=== PATIENT | male | born 1950 | race Caucasian/White ===

== ENCOUNTER 2016-05-20 07:16 | Day surgery (SDC) | payer OTHER, MEDICARE ==
[2016-05-18 11:18] LABS: HEMOGLOBIN 13.3 g/dL (13.5-17.0); HGB HCT DIFFERENCE 0.9; MEAN CORPUSCULAR HEMOGLOBIN 31.9 pg (27.0-33.4); MEAN CORPUSCULAR VOLUME 94 fl (80-97); RED BLOOD COUNT 4.15 10^6/uL (4.35-5.55); RED CELL DISTRIBUTION WIDTH 13.4 % (11.5-14.0); WHITE BLOOD COUNT 8.4 10^3/uL (4.0-10.5)
[2016-05-18 11:31] LABS: APPEARANCE,URINE CLEAR; BILIRUBIN,URINE NEGATIVE (NEGATIVE); GLUCOSE, URINE NEGATIVE (NEGATIVE); KETONES,URINE NEGATIVE (NEGATIVE); LEUKOCYTE ESTERASE,URINE NEGATIVE (NEGATIVE); NITRITE,URINE NEGATIVE (NEGATIVE); PROTEIN,URINE NEGATIVE (NEGATIVE); URINE SPECIFIC GRAVITY 1.011; UROBILINOGEN,URINE NEGATIVE mg/dL (<2.0)
[2016-05-18 11:38] LABS: C-REACTIVE PROTEIN < 5.0 mg/L (<10.0)
[2016-05-18 11:58] LABS: ERYTHROCYTE SEDIMENTATION RATE 17 mm/hr (0-20)
--- NOTE | 2016-05-18 14:04 | EKG REPORT ---
SEVERITY:- BORDERLINE ECG - SINUS RHYTHM BORDERLINE INFERIOR Q WAVES : Confirmed by: Bam Aguiar 18-May-2016 14:04:00
[2016-05-19 13:52] LABS: BLOOD UREA NITROGEN 20 mg/dL (7-20); CHLORIDE 103 mmol/L (98-107); CREATININE RESULT 0.63 mg/dL (0.52-1.25); GLUCOSE 47 mg/dL (75-110); POTASSIUM 4.5 mmol/L (3.6-5.0)
[2016-05-19 13:53] LABS: ANION GAP 12 (5-19); CARBON DIOXIDE 26 mmol/L (22-30); SODIUM 140.7 mmol/L (137-145)
[2016-05-19 13:54] LABS: CALCIUM 9.9 mg/dL (8.4-10.2)
[~2016-05-20 07:16] MED LIST: CEFAZOLIN 2 GM/D5W RTU 2 GM/50 ML RTUPB IV PRN; LACTATED RINGERS 1000 ML IV PRN; LIDOCAINE 0.5% INJ-PF (5 MG/ML) 50 ML SDV SUBCUT PRN
[2016-05-20] MEDS ORDERED: BUPIVACAINE HCL 0.5 % INJ/PF 30 ML SDV ONE (09:40)
[2016-05-20] MEDS ORDERED: DEXMEDETOMIDINE INJ 80 MCG/20 ML VIAL IV ONE ×2 (09:56→12:10)
[2016-05-20] MEDS ORDERED: FENTANYL CITRATE INJ/PF 250 MCG/5 ML AMPULE ONE ×2 (09:56→12:10)
[2016-05-20] MEDS ORDERED: PROPOFOL INJ 200 MG/20 ML VIAL IV ONE ×2 (09:56→12:10)
[2016-05-20] MEDS ORDERED: ACETAMINOPHEN 100 ML IV ONE ×2 (09:56→12:10)
[2016-05-20] MEDS ORDERED: MIDAZOLAM 2 MG/2 ML INJ ONE ×2 (09:56→12:10)
[2016-05-20] MEDS ORDERED: EPHEDRINE SULFATE INJ 50 MG/1 ML AMPULE ONE ×2 (09:56→12:10)
[2016-05-20] MEDS ORDERED: FENTANYL CITRATE INJ/PF 100 MCG/2 ML AMPUL ONE (09:57)
[2016-05-20] MEDS ORDERED: CEFAZOLIN INJ 1 GM VIAL ONE (10:12)
[2016-05-20] MEDS ORDERED: MEPERIDINE HCL/PF INJ 25 MG/1 ML DISP.SYRIN IV PRN (10:41)
[2016-05-20] MEDS ORDERED: PROMETHAZINE HCL INJ 25 MG/1 ML VIAL IV PRN ×2 (10:41)
[2016-05-20] MEDS ORDERED: FENTANYL CITRATE INJ/PF 100 MCG/2 ML AMPUL IV PRN ×3 (10:41)
[2016-05-20] MEDS ORDERED: DIPHENHYDRAMINE HCL 50 MG/ML VIAL IV PRN (10:41)
[2016-05-20] MEDS ORDERED: ONDANSETRON HCL INJ/PF 4 MG/2 ML SDV IV PRN ×2 (10:41→12:06)
[2016-05-20] MEDS ORDERED: MORPHINE SULFATE 10 MG/ML INJ IV PRN (10:41)
--- NOTE | 2016-05-20 11:50 | Operative Report ---
Operative Report DATE OF SURGERY: 05/20/16 PREOPERATIVE DIAGNOSIS: Posttraumatic arthrosis, right wrist OPERATION: Right radiocarpal arthrodesis. Proximal row carpectomy. Distal ulna resection SURGEON: MARIAM ZIMMERMAN ANESTHESIA: GA TISSUE REMOVED OR ALTERED: Specimen to pathology. Specimen to microbiology ESTIMATED BLOOD LOSS: 50 PROCEDURE: With the patient supine on the operating table the right upper extremity is prepped and draped in sterile fashion. The limb was elevated for exsanguination tourniquet inflated 250 torr. Total incisions being made beginning over the distal aspect of the third metacarpal extending proximally along the dorsal surface of the wrist onto the distal radius. Sharp dissection was used to carry the incision down to the fourth dorsal dorsal extensor compartment. This is opened and the tendons are retracted ulnarward. The third dorsal extensor compartment well is opened and Amanda's tubercle is resected. The dissection continues distally and the dorsal aspect of the third metacarpal carpal is exposed. At this point the case focuses on the radiocarpal joint. There is an anterior subluxation which is difficult to reduce. Attempt to do this multiple maneuvers. I resected the dorsal rim of the distal radius. I've attempted to mobilize the proximal carpal row by blunt dissection and also by levering it unsuccessfully. I subsequently performed a proximal row carpectomy which allows me enough laxity to translate the carpus back over the distal radius. This is stabilized using a posterior wrist arthrodesis plate by Jose. The plate is applied and the reduction assessed using intraoperative fluoroscopy and felt to be adequate. This results in a significant gap in the radiocarpal joint. The wound is irrigated. The tourniquet was deflated. Hemostasis obtained. The morcellized bone from the approach is then packed into the radiocarpal joint followed by 5 mL of DBX bone graft substitute. The wound is reapproximated using interrupted Vicryl followed by nylon. A sterile compressive dressing and posterior plaster splint were applied. The patient's returned to PACU in satisfactory condition.
[2016-05-20] MEDS ORDERED: OXYCODONE HCL IR 5 MG TABLET PO PRN (12:05)
[2016-05-20] MEDS: FENTANYL CITRATE INJ/PF 100 MCG/2 ML AMPUL ONE ×2 (12:10→12:15)
[2016-05-20] MEDS: HYDROMORPHONE HCL INJ/PF 2 MG/ML AMPULE ONE ×4 (12:32→13:02)
[2016-05-20] MEDS ORDERED: ROPIVACAINE HCL 0.5% INJ/PF (5 MG/1 ML) 30 ML SDV ONE (13:08)
[2016-05-20] MEDS ORDERED: LIDOCAINE 2% INJ-PF (20 MG/ML) 10 ML AMPUL ONE ×2 (13:08→13:23)
[2016-05-20] MEDS ORDERED: LIDOCAINE 2%/EPINEPHRINE INJ 20 ML VIAL ONE (13:10)
[2016-05-20] MEDS ORDERED: NALOXONE HCL INJ/PF 0.4 MG/1 ML SDV ONE (13:15)
[2016-05-20] MEDS ORDERED: ONDANSETRON HCL INJ/PF 4 MG/2 ML SDV ONE (13:23)
[2016-05-20] MEDS ORDERED: METOCLOPRAMIDE HCL INJ/PF 10 MG/2 ML SDV ONE (13:23)
[2016-05-20] MEDS ORDERED: SUCCINYLCHOLINE CHLORIDE INJ 200 MG/10 ML VIAL ONE (13:23)
[2016-05-20] MEDS ORDERED: KETOROLAC TROMETHAMINE 60 MG/2 ML SDV ONE (13:23)
[2016-05-20 15:14] VITALS: BP 128/64
== END 2016-05-20 15:10 | disposition home or self-care (01) ==
LOC: OROUT 07:16
PROVIDERS: ATTEND Orthopaedic Surgery
PROC: 0RGN04Z Fusion of Right Wrist Joint with Internal Fixation Device, Open Approach (ICD-10-PCS; 2016-05-20)
PROC: 0RR Upper Joints, Replacement (ICD-10-PCS; 2016-05-20)
PROC: 0PBM0ZZ Excision of Right Carpal, Open Approach (ICD-10-PCS; principal; 2016-05-20 09:30)
DX: M19.131 Post-traumatic osteoarthritis, right wrist (principal); F17.210 Nicotine dependence, cigarettes, uncomplicated; J44.9 Chronic obstructive pulmonary disease, unspecified; E11.9 Type 2 diabetes mellitus without complications; Z79.899 Other long term (current) drug therapy; Z79.4 Long term (current) use of insulin
CPT/HCPCS: 93005; 36415; 87070; 87205; 82962; 85027; 85652; 87075; 86140; 80048; 80053; 81001; 83036; 71020; 73110; 93010; 25136; 25820; J2795; J2250; J0690 ×2; J3490 ×4; J1885; J3010 ×2; J2765; J2310; J1170; J0330; J2405; J2704; J0131; 01830

== ENCOUNTER → 2016-06-18 | Outpatient (CLI) | payer MEDICARE, OTHER | LOC: RAD 07:06 | PROVIDERS: ATTEND Orthopaedic Surgery | DX: Z01.818 Encounter for other preprocedural examination (principal); M25.551 Pain in right hip; E13.8 Other specified diabetes mellitus with unspecified complications ==

== ENCOUNTER → 2016-07-16 | Outpatient (CLI) | payer OTHER ==
[2016-07-16 10:53] LABS: ABSOLUTE BASOPHILS # (AUTO) 0.1 10^3/uL (0.0-0.2); ABSOLUTE EOSINOPHILS # (AUTO) 0.4 10^3/uL (0.0-0.6); ABSOLUTE LYMPHOCYTES (AUTO) 1.6 10^3/uL (0.5-4.7); ABSOLUTE MONOCYTES (AUTO) 0.6 10^3/uL (0.1-1.4); ABSOLUTE NEUT (AUTO) 4.5 10^3/uL (1.7-8.2); BASOPHILS % (AUTO) 0.7 % (0-2); EOSINOPHILS % (AUTO) 5.2 % (0-6); HEMATOCRIT 38.1 % (37.9-51.0); HEMOGLOBIN 12.4 g/dL (13.5-17.0); HGB HCT DIFFERENCE -0.9; MEAN CORPUSCULAR HEMOGLOBIN 31.9 pg (27.0-33.4); MEAN CORPUSCULAR HGB CONC 32.6 g/dL (32.0-36.0); MEAN CORPUSCULAR VOLUME 98 fl (80-97); MONOCYTES % (AUTO) 8.6 % (3-13); RED CELL DISTRIBUTION WIDTH 13.7 % (11.5-14.0); SEGMENTED NEUTROPHILS % (AUTO) 63.5 % (42-78); WHITE BLOOD COUNT 7.1 10^3/uL (4.0-10.5)
[2016-07-16 10:59] LABS: APPEARANCE,URINE CLEAR; BILIRUBIN,URINE NEGATIVE (NEGATIVE); GLUCOSE, URINE 150 mg/dL (NEGATIVE); KETONES,URINE NEGATIVE (NEGATIVE); LEUKOCYTE ESTERASE,URINE NEGATIVE (NEGATIVE); NITRITE,URINE NEGATIVE (NEGATIVE); PROTEIN,URINE NEGATIVE (NEGATIVE); URINE SPECIFIC GRAVITY 1.023; UROBILINOGEN,URINE NEGATIVE mg/dL (<2.0)
[2016-07-16 11:19] LABS: ANION GAP 10 (5-19); BLOOD UREA NITROGEN 23 mg/dL (7-20); CALCIUM 9.8 mg/dL (8.4-10.2); CARBON DIOXIDE 27 mmol/L (22-30); CHLORIDE 100 mmol/L (98-107); CREATININE RESULT 0.82 mg/dL (0.52-1.25); GLUCOSE 229 mg/dL (75-110); POTASSIUM 4.4 mmol/L (3.6-5.0); SODIUM 137.4 mmol/L (137-145)
--- NOTE | 2016-07-16 13:56 | EKG REPORT ---
SEVERITY:- NORMAL ECG - SINUS RHYTHM : Confirmed by: Bam Aguiar 16-Jul-2016 13:55:40
== END ==
LOC: OD 09:42
PROVIDERS: ATTEND Orthopaedic Surgery
DX: Z01.818 Encounter for other preprocedural examination (principal); Z01.810 Encounter for preprocedural cardiovascular examination; Z01.811 Encounter for preprocedural respiratory examination; E11.9 Type 2 diabetes mellitus without complications; R70.0 Elevated erythrocyte sedimentation rate; R79.82 Elevated C-reactive protein (CRP); Z79.899 Other long term (current) drug therapy
CPT/HCPCS: 36415; 71020; 80048; 81001; 83036; 85025; 93005; 93010

== ENCOUNTER → 2016-08-06 | Outpatient (CLI) | payer OTHER ==
[~2016-08-06] MED LIST changes: +BUPIVACAINE INJ/PF LIPOSOME/PF 266 MG/20 ML SDV IJ PRN; -CEFAZOLIN 2 GM/D5W RTU 2 GM/50 ML RTUPB IV PRN; +CEFAZOLIN INJ 1 GM VIAL IV PRN; +IBUPROFEN 800 MG/NS 250 ML IV PRN; -LACTATED RINGERS 1000 ML IV PRN; +LANSOPRAZOLE 15 MG TAB.RAP.DR PO PRN; +OXYCODONE HCL SR 10 MG TABLET PO PRN; +RINGERS SOLUTION,LACTATED 1,000 ML IV PRN; +SCOPOLAMINE HYDROBROMIDE 1.5 MG PATCH.TD72 TOP PRN; +VANCOMYCIN HCL 1,000 MG in DEXTROSE 5%-WATER 250 ML IV PRN
[2016-08-06 12:25] LABS: HEMATOCRIT 37.3 % (37.9-51.0); HEMOGLOBIN 12.4 g/dL (13.5-17.0); HGB HCT DIFFERENCE -0.1; MEAN CORPUSCULAR HEMOGLOBIN 31.7 pg (27.0-33.4); MEAN CORPUSCULAR HGB CONC 33.4 g/dL (32.0-36.0); MEAN CORPUSCULAR VOLUME 95 fl (80-97); RED BLOOD COUNT 3.92 10^6/uL (4.35-5.55); RED CELL DISTRIBUTION WIDTH 13.1 % (11.5-14.0); WHITE BLOOD COUNT 11.7 10^3/uL (4.0-10.5)
[2016-08-06 12:29] LABS: APPEARANCE,URINE SLIGHTLY-CLOUDY; BILIRUBIN,URINE NEGATIVE (NEGATIVE); GLUCOSE, URINE >=500 mg/dL (NEGATIVE); KETONES,URINE NEGATIVE (NEGATIVE); LEUKOCYTE ESTERASE,URINE NEGATIVE (NEGATIVE); NITRITE,URINE NEGATIVE (NEGATIVE); PROTEIN,URINE NEGATIVE (NEGATIVE); URINE SPECIFIC GRAVITY 1.028; UROBILINOGEN,URINE NEGATIVE mg/dL (<2.0)
[2016-08-06 12:52] LABS: ANION GAP 9 (5-19); BLOOD UREA NITROGEN 25 mg/dL (7-20); CALCIUM 9.9 mg/dL (8.4-10.2); CARBON DIOXIDE 29 mmol/L (22-30); CHLORIDE 100 mmol/L (98-107); CREATININE RESULT 0.79 mg/dL (0.52-1.25); GLUCOSE 160 mg/dL (75-110); POTASSIUM 4.7 mmol/L (3.6-5.0); SODIUM 138.2 mmol/L (137-145)
[2016-08-14 16:12] VITALS: BP 136/80
== END ==
LOC: OD 11:35 → EDSTATUS 08-17 10:00
PROVIDERS: ATTEND Orthopaedic Surgery
DX: Z01.810 Encounter for preprocedural cardiovascular examination (principal); Z01.812 Encounter for preprocedural laboratory examination; Z01.818 Encounter for other preprocedural examination; M16.11 Unilateral primary osteoarthritis, right hip
CPT/HCPCS: 36415; 80048; 81001; 85027; J1741; J3370; J7050; J7060

== ENCOUNTER 2016-09-21 07:10 | Inpatient (IN) | payer OTHER, MEDICARE ==
--- NOTE | 2016-09-15 09:26 | RADIOLOGY REPORT (SQ) ---
EXAM DESCRIPTION: CHEST PA/LATERAL COMPLETED DATE/TIME: 09/15/2016 9:03 am REASON FOR STUDY: PRE-OP COMPARISON: 07/16/2016. EXAM PARAMETERS: NUMBER OF VIEWS: two views TECHNIQUE: Digital Frontal and Lateral radiographic views of the chest acquired. RADIATION DOSE: NA LIMITATIONS: none FINDINGS: LUNGS AND PLEURA: No opacities, masses or pneumothorax. No pleural effusion. MEDIASTINUM AND HILAR STRUCTURES: No masses or contour abnormalities. HEART AND VASCULAR STRUCTURES: Heart normal size. No evidence for failure. BONES: No acute findings. Degenerative changes in the spine. HARDWARE: None in the chest. OTHER: No other significant finding. IMPRESSION: NO SIGNIFICANT RADIOGRAPHIC FINDING IN THE CHEST. TECHNICAL DOCUMENTATION: JOB ID: [id number] [employer]- All Rights Reserved
[2016-09-15 10:21] LABS: HEMATOCRIT 39.3 % (37.9-51.0); HEMOGLOBIN 12.9 g/dL (13.5-17.0); HGB HCT DIFFERENCE -0.6; MEAN CORPUSCULAR HEMOGLOBIN 31.6 pg (27.0-33.4); MEAN CORPUSCULAR HGB CONC 32.9 g/dL (32.0-36.0); MEAN CORPUSCULAR VOLUME 96 fl (80-97); RED CELL DISTRIBUTION WIDTH 13.4 % (11.5-14.0); WHITE BLOOD COUNT 7.1 10^3/uL (4.0-10.5)
[2016-09-15 10:33] LABS: APPEARANCE,URINE CLEAR; BILIRUBIN,URINE NEGATIVE (NEGATIVE); GLUCOSE, URINE >=500 mg/dL (NEGATIVE); KETONES,URINE NEGATIVE (NEGATIVE); LEUKOCYTE ESTERASE,URINE TRACE (NEGATIVE); NITRITE,URINE NEGATIVE (NEGATIVE); PROTEIN,URINE NEGATIVE (NEGATIVE); URINE SPECIFIC GRAVITY 1.021; UROBILINOGEN,URINE NEGATIVE mg/dL (<2.0)
[2016-09-15 10:43] LABS: ANION GAP 10 (5-19); BLOOD UREA NITROGEN 22 mg/dL (7-20); CALCIUM 9.7 mg/dL (8.4-10.2); CARBON DIOXIDE 27 mmol/L (22-30); CHLORIDE 102 mmol/L (98-107); CREATININE RESULT 0.77 mg/dL (0.52-1.25); GLUCOSE 244 mg/dL (75-110); POTASSIUM 4.9 mmol/L (3.6-5.0); SODIUM 138.6 mmol/L (137-145)
--- NOTE | 2016-09-15 19:21 | EKG REPORT ---
SEVERITY:- BORDERLINE ECG - SINUS RHYTHM BORDERLINE PROLONGED QT INTERVAL : Confirmed by: Ramón Larsen MD 15-Sep-2016 19:20:45
[~2016-09-21 07:10] MED LIST changes: +LACTATED RINGERS 1000 ML IV PRN; -RINGERS SOLUTION,LACTATED 1,000 ML IV PRN; -SCOPOLAMINE HYDROBROMIDE 1.5 MG PATCH.TD72 TOP PRN
[2016-09-21] MEDS ORDERED: THROMBIN (BOVINE) TOPICAL 20000 UNIT VIAL ONE (09:14)
[2016-09-21] MEDS ORDERED: BUPIVACAINE INJ/PF LIPOSOME/PF 266 MG/20 ML SDV ONE (09:14)
[2016-09-21] MEDS ORDERED: THROMBIN (BOVINE) 5000 UNIT EPITAXIS KIT ONE (09:14)
[2016-09-21] MEDS ORDERED: MIDAZOLAM 2 MG/2 ML INJ ONE (09:18)
[2016-09-21] MEDS ORDERED: MORPHINE SULFATE 10 MG/ML INJ ONE (09:19)
[2016-09-21] MEDS ORDERED: TRANEXAMIC ACID INJ/PF 1,000 MG/10 ML SDV IV ONE ×3 (09:19→14:06)
[2016-09-21] MEDS ORDERED: PROPOFOL INJ 200 MG/20 ML VIAL IV ONE (09:19)
[2016-09-21] MEDS ORDERED: PROMETHAZINE HCL INJ 25 MG/1 ML VIAL IV PRN (11:35)
[2016-09-21] MEDS ORDERED: FENTANYL CITRATE INJ/PF 100 MCG/2 ML AMPUL IV PRN ×3 (11:35)
[2016-09-21] MEDS ORDERED: ONDANSETRON HCL INJ/PF 4 MG/2 ML SDV IV PRN (11:35)
[2016-09-21] MEDS ORDERED: MORPHINE SULFATE 10 MG/ML INJ IV PRN ×3 (11:35→13:01)
[2016-09-21] MEDS ORDERED: DIPHENHYDRAMINE HCL 50 MG/ML VIAL IV PRN ×2 (11:35→13:01)
[2016-09-21] MEDS ORDERED: MEPERIDINE HCL/PF INJ 25 MG/1 ML DISP.SYRIN IV PRN (11:35)
[2016-09-21] MEDS ORDERED: ONDANSETRON 4 MG TAB.RAPDIS PO PRN (13:01)
[2016-09-21] MEDS ORDERED: ACETAMINOPHEN 325 MG TABLET PO PRN (13:01)
[2016-09-21] MEDS ORDERED: MAG HYDROX/AL HYDROX/SIMETH SUSP 30 ML UDCUP PO PRN (13:01)
[2016-09-21] MEDS ORDERED: MORPHINE SULFATE 10 MG/ML INJ IM PRN (13:01)
[2016-09-21] MEDS ORDERED: INSULIN PUMP CARTRIDGE SQ PRN (13:01)
[2016-09-21] MEDS ORDERED: ZOLPIDEM TARTRATE 5 MG TABLET PO PRN (13:01)
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
[2016-09-21] MEDS ORDERED: (PENDING PHARMACY ID) (Pramipexole Di-Hcl [Pramipexole Dihydrochloride] 1 MG) PO SCH (14:00)
--- NOTE | 2016-09-21 14:33 | RADIOLOGY REPORT (SQ) ---
EXAM DESCRIPTION: PELVIS AP COMPLETED DATE/TIME: 09/21/2016 1:45 pm REASON FOR STUDY: Post Op Long Cassette in PACU M16.11 UNILATERAL PRIMARY OSTEOARTHRITIS, RIGHT HI P COMPARISON: CT of the right hip 06/18/2016 NUMBER OF VIEWS: AP pelvis, AP hip long cassette, portable technique TECHNIQUE: Digital radiographic images of the right hip post-procedure. LIMITATIONS: None. FINDINGS: New right hip replacement with acetabular component anchored with a screw. Femoral compon ent in good orientation. Old right pelvic fracture with stabilization hardware unchanged from CT 06/18/2016. Cheng catheter in the bladder. IMPRESSION: SATISFACTORY POSTOPERATIVE RIGHT HIP. TECHNICAL DOCUMENTATION: JOB ID: [id number] [employer]- All Rights Reserved
[2016-09-21] MEDS: GABAPENTIN 400 MG CAPSULE PO SCH ×2 (15:30→21:41)
[2016-09-21] MEDS: IBUPROFEN 800 MG in NORMAL SALINE 250 ML IV SCH (17:00)
[2016-09-21] MEDS: OXYBUTYNIN CHLORIDE 5 MG TABLET PO SCH (17:01)
[2016-09-21] MEDS: SENNOSIDES/DOCUSATE 8.6-50 MG 1 EACH TABLET PO SCH (17:01)
[2016-09-21] MEDS: RINGERS SOLUTION,LACTATED 1,000 ML IV PRN (17:02)
[2016-09-21] MEDS: OXYCODONE HCL IR 5 MG TABLET PO PRN ×2 (17:37→23:26)
[2016-09-21] MEDS: MORPHINE SULFATE 10 MG/ML INJ IV PRN ×3 (18:34→23:07)
[2016-09-21] MEDS: ONDANSETRON HCL INJ/PF 4 MG/2 ML SDV IV PRN (18:34)
[2016-09-21] MEDS: ATORVASTATIN CALCIUM 80 MG TABLET PO SCH (21:38)
[2016-09-21] MEDS: PRAMIPEXOLE DI-HCL 0.5 MG TABLET PO SCH (21:38)
[2016-09-21] MEDS: OXYCODONE HCL SR 10 MG TABLET PO SCH (21:39)
[2016-09-21] MEDS: RIVAROXABAN 10 MG TABLET PO SCH (21:39)
[2016-09-21] MEDS ORDERED: DEXTROSE 40% GEL 15 GM TUBE ONE (23:43)
[2016-09-21] MEDS ORDERED: DEXTROSE 50%-WATER SYRINGE 25 GM/50 ML DOSE IV PRN (23:58)
[2016-09-21] MEDS ORDERED: DEXTROSE 40% GEL 15 GM TUBE PO PRN (23:58)
[2016-09-21] MEDS ORDERED: DEXTROSE 50%-WATER SYRINGE 12.5 GM/25 ML DOSE IV PRN (23:58)
[2016-09-21] MEDS ORDERED: GLUCAGON,HUMAN RECOMB 1 MG INJ IM PRN (23:58)
[2016-09-21] MEDS ORDERED: DEXTROSE 40% GEL 15 GM TUBE X 2 PO PRN (23:58)
[2016-09-22] MEDS ORDERED: VANCOMYCIN HCL 1,000 MG in DEXTROSE 5%-WATER 250 ML IV ONE (01:00)
[2016-09-22] MEDS: IBUPROFEN 800 MG in NORMAL SALINE 250 ML IV SCH ×3 (01:55→17:47)
[2016-09-22] MEDS: ONDANSETRON HCL INJ/PF 4 MG/2 ML SDV IV PRN (03:15)
[2016-09-22] MEDS: RINGERS SOLUTION,LACTATED 1,000 ML IV PRN ×2 (03:15→15:02)
[2016-09-22] MEDS: MORPHINE SULFATE 10 MG/ML INJ IV PRN (03:15)
[2016-09-22] MEDS: PRAMIPEXOLE DI-HCL 0.5 MG TABLET PO SCH ×3 (05:36→21:30)
[2016-09-22] MEDS: GABAPENTIN 400 MG CAPSULE PO SCH ×3 (05:36→21:30)
[2016-09-22] MEDS: OXYCODONE HCL IR 5 MG TABLET PO PRN (05:36)
[2016-09-22] MEDS: LANSOPRAZOLE 30 MG TAB.RAP.DR PO SCH (05:36)
[2016-09-22 07:06] LABS: HEMATOCRIT 28.8 % (37.9-51.0); HEMOGLOBIN 9.4 g/dL (13.5-17.0); HGB HCT DIFFERENCE -0.6; MEAN CORPUSCULAR HEMOGLOBIN 31.7 pg (27.0-33.4); MEAN CORPUSCULAR HGB CONC 32.8 g/dL (32.0-36.0); MEAN CORPUSCULAR VOLUME 97 fl (80-97); RED BLOOD COUNT 2.98 10^6/uL (4.35-5.55); RED CELL DISTRIBUTION WIDTH 13.4 % (11.5-14.0); WHITE BLOOD COUNT 7.2 10^3/uL (4.0-10.5)
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
[2016-09-22 07:32] LABS: ANION GAP 6 (5-19); BLOOD UREA NITROGEN 24 mg/dL (7-20); CALCIUM 8.5 mg/dL (8.4-10.2); CARBON DIOXIDE 26 mmol/L (22-30); CHLORIDE 104 mmol/L (98-107); CREATININE RESULT 0.93 mg/dL (0.52-1.25); GLUCOSE 141 mg/dL (75-110); POTASSIUM 4.6 mmol/L (3.6-5.0); SODIUM 136.1 mmol/L (137-145)
[2016-09-22] MEDS: SENNOSIDES/DOCUSATE 8.6-50 MG 1 EACH TABLET PO SCH ×2 (09:37→17:47)
[2016-09-22] MEDS: PRENATAL VITAMIN W-O CA NO5/FE FUMARATE/FA CAPSULE PO SCH (09:38)
[2016-09-22] MEDS: OXYCODONE HCL SR 10 MG TABLET PO SCH ×2 (09:38→21:30)
[2016-09-22] MEDS: OXYBUTYNIN CHLORIDE 5 MG TABLET PO SCH (17:47)
[2016-09-22] MEDS: RIVAROXABAN 10 MG TABLET PO SCH (21:30)
[2016-09-22] MEDS: ATORVASTATIN CALCIUM 80 MG TABLET PO SCH (21:30)
[2016-09-23] MEDS: IBUPROFEN 800 MG in NORMAL SALINE 250 ML IV SCH ×2 (02:21→09:22)
[2016-09-23] MEDS: LANSOPRAZOLE 30 MG TAB.RAP.DR PO SCH (05:50)
[2016-09-23] MEDS: PRAMIPEXOLE DI-HCL 0.5 MG TABLET PO SCH (05:51)
[2016-09-23] MEDS: GABAPENTIN 400 MG CAPSULE PO SCH (05:51)
[2016-09-23 06:32] LABS: HEMATOCRIT 27.9 % (37.9-51.0); HEMOGLOBIN 9.3 g/dL (13.5-17.0); MEAN CORPUSCULAR HEMOGLOBIN 31.9 pg (27.0-33.4); MEAN CORPUSCULAR HGB CONC 33.3 g/dL (32.0-36.0); MEAN CORPUSCULAR VOLUME 96 fl (80-97); RED BLOOD COUNT 2.92 10^6/uL (4.35-5.55); RED CELL DISTRIBUTION WIDTH 13.5 % (11.5-14.0); WHITE BLOOD COUNT 9.1 10^3/uL (4.0-10.5)
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
[2016-09-23 08:16] VITALS: BP 144/55
[2016-09-23] MEDS: OXYCODONE HCL SR 10 MG TABLET PO SCH (09:23)
[2016-09-23] MEDS: PRENATAL VITAMIN W-O CA NO5/FE FUMARATE/FA CAPSULE PO SCH (09:23)
[2016-09-23] MEDS: SENNOSIDES/DOCUSATE 8.6-50 MG 1 EACH TABLET PO SCH (09:27)
== END 2016-09-23 11:33 | disposition home health service (06) | DRG 470 ==
LOC: INOR 07:10 → 4S 14:17
PROVIDERS: ADMIT Orthopaedic Surgery; ATTEND Orthopaedic Surgery
PROC: 0SR901A Replacement of Right Hip Joint with Metal Synthetic Substitute, Uncemented, Open Approach (ICD-10-PCS; principal; 2016-09-21 10:00)
DX: M16.51 Unilateral post-traumatic osteoarthritis, right hip (principal); S32.46 Associated transverse-posterior fracture of acetabulum; E10.649 Type 1 diabetes mellitus with hypoglycemia without coma; E78.5 Hyperlipidemia, unspecified; E10.42 Type 1 diabetes mellitus with diabetic polyneuropathy; F32.9 Major depressive disorder, single episode, unspecified; F17.290 Nicotine dependence, other tobacco product, uncomplicated; Z96.41 Presence of insulin pump (external) (internal); Z79.4 Long term (current) use of insulin; V49.9XXS Car occupant (driver) (passenger) injured in unspecified traffic accident, sequela
CPT/HCPCS: 01214; 36415; 71020; 72170; 80048; 81001; 82962; 85027; 86850; 86900; 86901; 87070; 87075; 87205; 88304; 88311; 93005; 93010; 94799; C1713; C9290; G8978-GP; G8979-GP; J0690; J1741; J2250; J2270; J2405; J2704; J3370; J3490; J7050; J7060; J7120

== ENCOUNTER 2018-05-12 05:17 | Inpatient (IN) | payer OTHER, MEDICARE ==
[2018-05-12 06:19] LABS: ABSOLUTE EOSINOPHILS # (AUTO) 0.3 10^3/uL (0.0-0.6); ABSOLUTE LYMPHOCYTES (AUTO) 1.4 10^3/uL (0.5-4.7); ABSOLUTE MONOCYTES (AUTO) 0.7 10^3/uL (0.1-1.4); BASOPHILS % (AUTO) 0.7 % (0-2); EOSINOPHILS % (AUTO) 4.5 % (0-6); HEMOGLOBIN 9.3 g/dL (13.5-17.0); LYMPHOCYTES % (AUTO) 22.3 % (13-45); MEAN CORPUSCULAR HEMOGLOBIN 30.4 pg (27.0-33.4); MEAN CORPUSCULAR HGB CONC 34.4 g/dL (32.0-36.0); MEAN CORPUSCULAR VOLUME 89 fl (80-97); MONOCYTES % (AUTO) 10.9 % (3-13); PLATELET COUNT 406 10^3/uL (150-450); RED BLOOD COUNT 3.05 10^6/uL (4.35-5.55); RED CELL DISTRIBUTION WIDTH 14.9 % (11.5-14.0); SEGMENTED NEUTROPHILS % (AUTO) 61.6 % (42-78); TOTAL CELLS COUNTED % (AUTO) 100 %; WHITE BLOOD COUNT 6.4 10^3/uL (4.0-10.5)
[2018-05-12 06:21] LABS: INTERNATIONAL RATION (INR) 1.11; PROTHROMBIN TIME 14.9 SEC (11.4-15.4)
[2018-05-12 06:22] LABS: PARTIAL THROMBOPLASTIN TIME 35.2 SEC (23.5-35.8)
[2018-05-12 06:35] LABS: ANION GAP 8 (5-19); BLOOD UREA NITROGEN 19 mg/dL (7-20); C-REACTIVE PROTEIN 69.3 mg/L (<10.0); CALCIUM 9.4 mg/dL (8.4-10.2); CARBON DIOXIDE 28 mmol/L (22-30); CHLORIDE 103 mmol/L (98-107); GLUCOSE 85 mg/dL (75-110); POTASSIUM 4.6 mmol/L (3.6-5.0); SODIUM 139.4 mmol/L (137-145)
[2018-05-12] MEDS ORDERED: FENTANYL CITRATE INJ/PF 100 MCG/2 ML AMPUL ONE (07:17)
[2018-05-12] MEDS ORDERED: LIDOCAINE 2% INJ-PF (100 MG/5 ML) SYRINGE ONE (07:17)
[2018-05-12] MEDS ORDERED: MIDAZOLAM 2 MG/2 ML INJ ONE (07:17)
[2018-05-12] MEDS ORDERED: PROPOFOL INJ 200 MG/20 ML VIAL IV ONE (07:18)
[2018-05-12] MEDS ORDERED: ONDANSETRON HCL INJ/PF 4 MG/2 ML SDV ONE (07:18)
[2018-05-12] MEDS ORDERED: BACITRACIN INJ 50,000 UNIT VIAL ONE (07:19)
[2018-05-12] MEDS ORDERED: THROMBIN (BOVINE) TOPICAL 20000 UNIT VIAL ONE (07:19)
[2018-05-12] MEDS ORDERED: THROMBIN (BOVINE) 5000 UNIT EPITAXIS KIT ONE (07:19)
--- NOTE | 2018-05-12 07:28 | RADIOLOGY REPORT (SQ) ---
EXAM DESCRIPTION: X-ray single view chest. CLINICAL HISTORY: 67 years Male, preop COMPARISON: None. TECHNIQUE: Single portable view of the chest performed on 05/12/2018 at 5:47 AM FINDINGS: The lungs are well expanded and are clear. There is no evidence of a pneumothorax. The cardiac silhouette is normal in size and configuration. The mediastinal contours are normal. No acute osseous abnormality is identified. There are degenerative changes of the right shoulder and thoracic spine. No focal soft tissue abnormalities are seen. Lines and tubes: None. IMPRESSION: 1. No definite acute intrathoracic disease. 2. Degenerative changes of the thoracic spine and right shoulder.
[2018-05-12] MEDS ORDERED: FENTANYL CITRATE INJ/PF 100 MCG/2 ML AMPUL IV PRN ×3 (08:18)
[2018-05-12] MEDS ORDERED: OXYCODONE-ACETAMINOPHEN 5-325 MG TABLET PO PRN ×2 (08:18)
[2018-05-12] MEDS ORDERED: DIPHENHYDRAMINE HCL 50 MG/ML VIAL IV PRN ×2 (08:18→09:01)
[2018-05-12] MEDS ORDERED: PROMETHAZINE HCL INJ 25 MG/1 ML VIAL IV PRN ×2 (08:18)
[2018-05-12] MEDS ORDERED: MEPERIDINE HCL/PF INJ 25 MG/1 ML DISP.SYRIN IV PRN (08:18)
[2018-05-12] MEDS ORDERED: ONDANSETRON HCL INJ/PF 4 MG/2 ML SDV IV PRN ×2 (08:18→09:01)
[2018-05-12] MEDS ORDERED: BUPIVACAINE HCL 0.5%-EPI 1:200000 INJ/PF 30 ML VIAL ONE (08:41)
[2018-05-12] MEDS ORDERED: ACETAMINOPHEN 325 MG TABLET PO PRN (09:01)
[2018-05-12] MEDS ORDERED: MAG HYDROX/AL HYDROX/SIMETH SUSP 30 ML UDCUP PO PRN (09:01)
[2018-05-12] MEDS ORDERED: ZOLPIDEM TARTRATE 5 MG TABLET PO PRN (09:01)
[2018-05-12] MEDS ORDERED: MORPHINE SULFATE 10 MG/ML INJ IV PRN ×2 (09:01)
[2018-05-12] MEDS ORDERED: ONDANSETRON 4 MG TAB.RAPDIS PO PRN (09:01)
--- NOTE | 2018-05-12 09:07 | Operative Report ---
Operative Report DATE OF SURGERY: 05/12/18 PREOPERATIVE DIAGNOSIS: Right periprosthetic hip infection OPERATION: Revision right hip arthroplasty SURGEON: MARIAM ZIMMERMAN ANESTHESIA: Spinal TISSUE REMOVED OR ALTERED: Cultures x2 to microbiology. Implants to CSS ESTIMATED BLOOD LOSS: 150 PROCEDURE: Implants used: Liner:[MDM liner] Head: 28 mm chrome cobalt head +4 neck The patient is placed in a left lateral decubitus position on the operating table. The right lower extremity and hindquarter is prepped and draped in a sterile fashion. A curvilinear incision was made over the greater trochanter a posterior approach the hip was taken ellipsing out the existing draining sinus tract.. The femoral head is dislocated and disimpacted from the trunnion. Attention was next turned to the acetabulum. Soft tissues cleared off the acetabulum using electrocautery. The acetabulum the existing MDM acetabular liner was disimpacted. The wound is then irrigated with 3 L normal seventh and bacitracin and pulse lavage followed by 3 L normal saline. The synovial surface is debrided and sent to pathology.. Subsequently a new MDM liner is impacted into the acetabular shell. A new chrome cobalt head, polyethylene adapter are impacted into one another and then impacted onto the trunnion. The hip is reduced.. Wound is copiously irrigated with pulsed lavage. Sent closed in layers using interrupted PDS followed by lazarus. A sterile dressing is applied and the patient's returned to recovery room in satisfactory patient.
--- NOTE | 2018-05-12 09:44 | RADIOLOGY REPORT (SQ) ---
EXAM DESCRIPTION: PELVIS AP COMPLETED DATE/TIME: 05/12/2018 9:35 am REASON FOR STUDY: Post Op Long Cassette in PACU Z96.649 PRESENCE OF UNSPECIFIED ARTIFICIAL HIP KERRI NT COMPARISON: None. NUMBER OF VIEWS: One view TECHNIQUE: Digital radiographic images of the pelvis post-procedure LIMITATIONS: None. FINDINGS: BONES: No worrisome or unexpected findings post-procedure. DEVICE: Right total hip arthroplasty. SOFT TISSUES: No worrisome findings. Expected postoperative soft tissue changes. IMPRESSION: SATISFACTORY POSTOPERATIVE PELVIS. TECHNICAL DOCUMENTATION: JOB ID: [id number] [employer] All Rights Reserved Reading location - IP/workstation name: [email or web address]
[2018-05-12] MEDS ORDERED: DEXTROSE 50%-WATER SYRINGE 25 GM/50 ML DOSE IV PRN (10:30)
[2018-05-12] MEDS ORDERED: DEXTROSE 40% GEL 15 GM TUBE PO PRN (10:30)
[2018-05-12] MEDS ORDERED: DEXTROSE 50%-WATER SYRINGE 12.5 GM/25 ML DOSE IV PRN (10:30)
[2018-05-12] MEDS ORDERED: GLUCAGON,HUMAN RECOMB 1 MG INJ IM PRN (10:30)
[2018-05-12] MEDS ORDERED: DEXTROSE 40% GEL 15 GM TUBE X 2 PO PRN (10:30)
[2018-05-12] MEDS ORDERED: TRANEXAMIC ACID INJ/PF 1,000 MG/10 ML SDV IV SCH ×2 (11:00→12:15)
[2018-05-12] MEDS: RINGERS SOLUTION,LACTATED 1,000 ML IV PRN ×2 (11:46→18:41)
[2018-05-12] MEDS: MORPHINE SULFATE 10 MG/ML INJ IV PRN ×6 (11:58→23:12)
[2018-05-12] MEDS ORDERED: TRANEXAMIC ACID INJ/PF 1,000 MG/10 ML SDV IV PRN (12:31)
[2018-05-12] MEDS: INSULIN LISPRO 100 UNIT/ML 3 ML VIAL SUBCUT SCH ×3 (12:43→22:14)
[2018-05-12] MEDS: OXYCODONE HCL IR 5 MG TABLET PO PRN (12:45)
[2018-05-12] MEDS: CEFTRIAXONE 2 GM/D5W RTU 2 GM/50 ML RTUPB IV SCH (12:45)
--- NOTE | 2018-05-12 12:46 | EKG REPORT ---
SEVERITY:- NORMAL ECG - SINUS RHYTHM : Confirmed by: Beena Mcginnis MD 12-May-2018 12:45:19
[2018-05-12] MEDS: IBUPROFEN 800 MG in NORMAL SALINE 250 ML IV SCH ×2 (15:20→22:09)
[2018-05-12] MEDS: GABAPENTIN 400 MG CAPSULE PO SCH ×2 (15:21→22:13)
[2018-05-12] MEDS ORDERED: NORMAL SALINE 10 ML SDV (AFTER EACH USE) IV PRN (15:30)
--- NOTE | 2018-05-12 15:31 | RADIOLOGY REPORT (SQ) ---
EXAM DESCRIPTION: PICC INSERTION; U/S GUIDE FOR VASCULAR ACCESS; FLUORO/CV PLACEMENT COMPLETED DATE/TIME: 05/12/2018 3:18 pm REASON FOR STUDY: IV antibiotics; IV ABX Z96.649 PRESENCE OF UNSPECIFIED ARTIFICIAL HIP JOINT COMPARISON: None. FLUOROSCOPY TIME: 22 2 images saved to PACS. TECHNIQUE: Fluoroscopic and ultrasound guided PICC placement. LIMITATIONS: None. PROCEDURE: After written consent and assessment were obtained, the patient was brought into the fluo roscopy room and placed supine on the table. Ultrasound evaluation of potential access sites were per formed. After successfully identifying a patent left basilic vein, the left arm was prepped and drape d in a sterile fashion along with the ultrasound probe. The entry site was anesthetized with 1% lidoc jayjay. A 21 gauge 7 cm needle was advanced through the skin and into the basilic vein under live ultra sound guidance. An ultrasound image was saved to PACS confirming access site. A .018 guide wire was then inserted through the needle and into the venous system. The needle was then removed and an 11 b lade scalpel was used to make a 1cm skin incision. A 5 fr peel-away sheath was advanced over the wir e and into the venous system. A measurement was then made using the existing wire and live fluoroscop ic guidance. The wire was then removed and trimmed. The PICC was advanced through the peel-away sheat h and into the venous system. The peel-away sheath was removed and the catheter was adhered to the pa tients arm with a stat lock. The catheter was then aspirated and flushed and a sterile bandage was pl aced over the access site. A fluoroscopic spot image was saved to PACS confirming the catheter tip w ithin the superior vena cava. IMPRESSION: SUCCESSFUL PLACEMENT OF A 5 FR DUAL LUMEN 46 CM PICC IN THE LEFT BASILIC VEIN. COMMENT: Patient medication list reviewed: Yes- Quality ID# 130:Eligible professional attests to doc umenting in the medical record they obtained, updated, or reviewed the patient's current medications. . Quality ID 145: Final reports for procedures using fluoroscopy that document radiation exposure marie yosvany, or exposure time and number of fluorographic images (if radiation exposure indices are not avail able) Quality ID #76: The patient was prepped and draped using maximum sterile barrier technique including cap, mask, sterile gown, sterile gloves, a large sterile sheet, hand hygiene, and 2% Chlorhexidine fo r cutaneous antisepsis. When ultrasound is used, sterile ultrasound techniques are followed requiring sterile gel and sterile probes. TECHNICAL DOCUMENTATION: JOB ID: [id number] [employer]- All Rights Reserved rev-07/23 Reading location - IP/workstation name: [email or web address]
[2018-05-12 15:57] LABS: APPEARANCE,URINE CLEAR; BILIRUBIN,URINE NEGATIVE (NEGATIVE); COLOR,URINE STRAW; GLUCOSE, URINE 150 mg/dL (NEGATIVE); KETONES,URINE NEGATIVE (NEGATIVE); LEUKOCYTE ESTERASE,URINE NEGATIVE (NEGATIVE); NITRITE,URINE NEGATIVE (NEGATIVE); PROTEIN,URINE NEGATIVE (NEGATIVE); URINE SPECIFIC GRAVITY 1.011; UROBILINOGEN,URINE NEGATIVE mg/dL (<2.0)
[2018-05-12] MEDS: VANCOMYCIN HCL 1,000 MG in DEXTROSE 5%-WATER 250 ML IV SCH ×2 (16:06→23:00)
[2018-05-12] MEDS: RIFAMPIN 300 MG CAPSULE PO SCH (16:14)
[2018-05-12] MEDS: SENNOSIDES/DOCUSATE 8.6-50 MG 1 EACH TABLET PO SCH (17:53)
[2018-05-12] MEDS ORDERED: VANCOMYCIN HCL 1,000 MG in DEXTROSE 5%-WATER 250 ML IV SCH (22:00)
[2018-05-12] MEDS: OXYCODONE HCL SR 10 MG TABLET PO SCH (22:12)
[2018-05-12] MEDS: NORMAL SALINE 10 ML SDV (SCHEDULED) IV SCH (22:15)
[2018-05-13] MEDS: RINGERS SOLUTION,LACTATED 1,000 ML IV PRN ×2 (00:49→12:19)
[2018-05-13] MEDS: MORPHINE SULFATE 10 MG/ML INJ IV PRN ×2 (02:38→16:33)
[2018-05-13 05:44] LABS: HEMATOCRIT 21.8 % (37.9-51.0); MEAN CORPUSCULAR HEMOGLOBIN 30.2 pg (27.0-33.4); MEAN CORPUSCULAR HGB CONC 33.7 g/dL (32.0-36.0); MEAN CORPUSCULAR VOLUME 90 fl (80-97); PLATELET COUNT 325 10^3/uL (150-450); RED BLOOD COUNT 2.44 10^6/uL (4.35-5.55); RED CELL DISTRIBUTION WIDTH 14.9 % (11.5-14.0); WHITE BLOOD COUNT 6.8 10^3/uL (4.0-10.5)
[2018-05-13] MEDS: IBUPROFEN 800 MG in NORMAL SALINE 250 ML IV SCH ×3 (05:49→22:38)
[2018-05-13] MEDS: LANSOPRAZOLE 30 MG TAB.RAP.DR PO SCH (05:49)
[2018-05-13] MEDS: GABAPENTIN 400 MG CAPSULE PO SCH ×3 (05:49→22:37)
[2018-05-13 05:57] LABS: HEMOGLOBIN 7.4 g/dL (13.5-17.0)
[2018-05-13 06:20] LABS: ERYTHROCYTE SEDIMENTATION RATE 82 mm/hr (0-20)
[2018-05-13 06:29] LABS: ANION GAP 7 (5-19); BLOOD UREA NITROGEN 15 mg/dL (7-20); C-REACTIVE PROTEIN 82.4 mg/L (<10.0); CALCIUM 8.3 mg/dL (8.4-10.2); CARBON DIOXIDE 26 mmol/L (22-30); CHLORIDE 104 mmol/L (98-107); GLUCOSE 102 mg/dL (75-110); POTASSIUM 4.6 mmol/L (3.6-5.0); SODIUM 137.1 mmol/L (137-145)
[2018-05-13] MEDS: VANCOMYCIN HCL 1,000 MG in DEXTROSE 5%-WATER 250 ML IV SCH ×3 (06:36→22:38)
[2018-05-13] MEDS: RIFAMPIN 300 MG CAPSULE PO SCH ×2 (08:21→16:44)
[2018-05-13] MEDS: INSULIN LISPRO 100 UNIT/ML 3 ML VIAL SUBCUT SCH ×4 (08:29→22:39)
[2018-05-13] MEDS ORDERED: TRANEXAMIC ACID INJ/PF 1,000 MG/10 ML SDV IV ONE (10:30)
[2018-05-13] MEDS: PRENATAL VITAMIN W DHA CAPSULE PO SCH (11:19)
[2018-05-13] MEDS: FINASTERIDE 5 MG TABLET PO SCH (11:19)
[2018-05-13] MEDS: OXYCODONE HCL SR 10 MG TABLET PO SCH ×2 (11:19→22:37)
[2018-05-13] MEDS: SENNOSIDES/DOCUSATE 8.6-50 MG 1 EACH TABLET PO SCH ×2 (11:19→20:19)
[2018-05-13] MEDS: NORMAL SALINE 10 ML SDV (SCHEDULED) IV SCH ×2 (11:20→22:38)
[2018-05-13] MEDS ORDERED: CEFTRIAXONE RTU 2 GM/D5W 50 ML IV SCH (12:00)
[2018-05-13] MEDS: CEFTRIAXONE 2 GM/D5W RTU 2 GM/50 ML RTUPB IV SCH (12:19)
[2018-05-13] MEDS: OXYCODONE HCL IR 5 MG TABLET PO PRN (22:37)
[2018-05-13] MEDS: ATORVASTATIN CALCIUM 80 MG TABLET PO SCH (22:38)
[2018-05-14] MEDS: OXYCODONE HCL IR 5 MG TABLET PO PRN ×2 (06:27→21:51)
[2018-05-14] MEDS: GABAPENTIN 400 MG CAPSULE PO SCH ×3 (06:27→21:52)
[2018-05-14] MEDS: LANSOPRAZOLE 30 MG TAB.RAP.DR PO SCH (06:27)
[2018-05-14] MEDS: IBUPROFEN 800 MG in NORMAL SALINE 250 ML IV SCH (06:28)
[2018-05-14] MEDS: VANCOMYCIN HCL 1,000 MG in DEXTROSE 5%-WATER 250 ML IV SCH ×3 (06:28→21:50)
[2018-05-14 06:55] LABS: HEMATOCRIT 27.9 % (37.9-51.0); MEAN CORPUSCULAR HEMOGLOBIN 30.1 pg (27.0-33.4); MEAN CORPUSCULAR HGB CONC 33.8 g/dL (32.0-36.0); MEAN CORPUSCULAR VOLUME 89 fl (80-97); PLATELET COUNT 329 10^3/uL (150-450); RED BLOOD COUNT 3.14 10^6/uL (4.35-5.55); RED CELL DISTRIBUTION WIDTH 14.8 % (11.5-14.0); WHITE BLOOD COUNT 8.1 10^3/uL (4.0-10.5)
[2018-05-14 07:06] LABS: HEMOGLOBIN 9.5 g/dL (13.5-17.0)
--- NOTE | 2018-05-14 07:10 | PDOC PROGRESS REPORT ---
Subjective Progress Note for:: 05/14/18 Reason For Visit: RIGHT HIP INFECTION 67-year-old white male status post I&D right hip for periprosthetic infection. Patient reports feeling 100% better. Remains afebrile. Has really not been mobilized at this point. Culture are growing gram-positive cocci in clusters. Physical Exam Vital Signs: Temp Pulse Resp BP Pulse Ox 36.7 C 88 17 141/72 H 96 05/13/18 22:54 05/13/18 22:54 05/13/18 22:54 05/13/18 22:54 05/13/18 22:54 Intake & Output 05/13/18 05/14/18 05/15/18 06:59 06:59 07:59 Intake Total 84202 5353 250 Output Total 7850 3970 Balance 3463 1383 250 General appearance: PRESENT: no acute distress Head exam: PRESENT: normocephalic Respiratory exam: PRESENT: unlabored Cardiovascular exam: PRESENT: RRR Pulses: PRESENT: +1 pedal pulses bilateral Vascular exam: PRESENT: normal capillary refill GI/Abdominal exam: PRESENT: soft Rectal exam: PRESENT: deferred Extremities exam: PRESENT: other - Right hip dressing with some drainage. To be changed by nursing. Leg lengths are equal. Distal neurovascular examination is intact. Results Laboratory Results: 05/14/18 06:40 05/13/18 04:35 05/13/18 05/14/18 08:10 06:40 WBC 8.1 RBC 3.14 L Hgb 9.5 L D Hct 27.9 L MCV 89 MCH 30.1 MCHC 33.8 RDW 14.8 H Plt Count 329 Blood Type O POSITIVE Antibody Screen NEGATIVE Impressions: Chest X-Ray 05/12/18 00:00 IMPRESSION: 1. No definite acute intrathoracic disease. 2. Degenerative changes of the thoracic spine and right shoulder. Guidance Fluoroscopy 05/12/18 00:00 IMPRESSION: SUCCESSFUL PLACEMENT OF A 5 FR DUAL LUMEN 46 CM PICC IN THE LEFT BASILIC VEIN. Interventional Vascular Procedure 05/12/18 00:00 IMPRESSION: SUCCESSFUL PLACEMENT OF A 5 FR DUAL LUMEN 46 CM PICC IN THE LEFT BASILIC VEIN. PICC Line Insertion 05/12/18 00:00 IMPRESSION: SUCCESSFUL PLACEMENT OF A 5 FR DUAL LUMEN 46 CM PICC IN THE LEFT BASILIC VEIN. Pelvis X-Ray 05/12/18 09:02 IMPRESSION: SATISFACTORY POSTOPERATIVE PELVIS. Status: Imported from PACS Assessment & Plan - Diagnosis (1) Prosthetic hip infection Is this a current diagnosis for this admission?: Yes Plan: Patient with clinical improvement. Cultures growing gram-positive cocci in clusters. Patient remains on broad-spectrum antibiotics at the current time. This will be tailored once sensitivities of the presumed Staphylococcus are known. In the interim the patient be mobilized with physical therapy and weightbearing as tolerated basis. Anticipate the need for 6 weeks of IV antibiotic therapy. - Time Time Spent with patient: 15-24 minutes Anticipated discharge: Home with Homehealth Within: within 48 hours
[2018-05-14] MEDS: RIFAMPIN 300 MG CAPSULE PO SCH ×2 (08:47→17:06)
[2018-05-14] MEDS: INSULIN LISPRO 100 UNIT/ML 3 ML VIAL SUBCUT SCH ×4 (08:58→21:51)
[2018-05-14] MEDS: CEFTRIAXONE 2 GM/D5W RTU 2 GM/50 ML RTUPB IV SCH (11:19)
[2018-05-14] MEDS: FINASTERIDE 5 MG TABLET PO SCH (11:20)
[2018-05-14] MEDS: PRENATAL VITAMIN W DHA CAPSULE PO SCH (11:20)
[2018-05-14] MEDS: OXYCODONE HCL SR 10 MG TABLET PO SCH (11:20)
[2018-05-14] MEDS: NORMAL SALINE 10 ML SDV (SCHEDULED) IV SCH ×2 (11:21→21:51)
[2018-05-14] MEDS: SENNOSIDES/DOCUSATE 8.6-50 MG 1 EACH TABLET PO SCH ×2 (11:21→17:06)
[2018-05-14] MEDS: MORPHINE SULFATE 10 MG/ML INJ IV PRN (11:32)
[2018-05-14] MEDS: PRAMIPEXOLE DI-HCL 0.5 MG TABLET PO SCH ×2 (17:05→21:51)
[2018-05-14] MEDS: ATORVASTATIN CALCIUM 80 MG TABLET PO SCH (21:51)
[2018-05-15] MEDS: LANSOPRAZOLE 30 MG TAB.RAP.DR PO SCH (05:48)
[2018-05-15] MEDS: VANCOMYCIN HCL 1,000 MG in DEXTROSE 5%-WATER 250 ML IV SCH (05:48)
[2018-05-15] MEDS: GABAPENTIN 400 MG CAPSULE PO SCH ×3 (05:48→21:53)
[2018-05-15 06:17] LABS: HEMATOCRIT 28.6 % (37.9-51.0); HEMOGLOBIN 9.7 g/dL (13.5-17.0); MEAN CORPUSCULAR HEMOGLOBIN 30.2 pg (27.0-33.4); MEAN CORPUSCULAR HGB CONC 33.8 g/dL (32.0-36.0); MEAN CORPUSCULAR VOLUME 89 fl (80-97); PLATELET COUNT 374 10^3/uL (150-450); RED BLOOD COUNT 3.21 10^6/uL (4.35-5.55); RED CELL DISTRIBUTION WIDTH 14.7 % (11.5-14.0); WHITE BLOOD COUNT 8.1 10^3/uL (4.0-10.5)
[2018-05-15] MEDS: INSULIN LISPRO 100 UNIT/ML 3 ML VIAL SUBCUT SCH ×3 (08:41→17:06)
[2018-05-15] MEDS: RIFAMPIN 300 MG CAPSULE PO SCH ×2 (08:42→16:53)
[2018-05-15] MEDS: OXYCODONE HCL IR 5 MG TABLET PO PRN (09:23)
[2018-05-15] MEDS: PRENATAL VITAMIN W DHA CAPSULE PO SCH (10:54)
[2018-05-15] MEDS: SENNOSIDES/DOCUSATE 8.6-50 MG 1 EACH TABLET PO SCH ×2 (10:55→17:07)
[2018-05-15] MEDS: PRAMIPEXOLE DI-HCL 0.5 MG TABLET PO SCH ×3 (10:55→21:53)
[2018-05-15] MEDS: FINASTERIDE 5 MG TABLET PO SCH (10:55)
[2018-05-15] MEDS: LEVOFLOXACIN 750 MG/D5W RTU 750 MG/150 ML RTUPB IV SCH (10:56)
[2018-05-15] MEDS: NORMAL SALINE 10 ML SDV (SCHEDULED) IV SCH ×2 (10:56→21:54)
[2018-05-15] MEDS: CEFTRIAXONE 2 GM/D5W RTU 2 GM/50 ML RTUPB IV SCH (12:40)
[2018-05-15] MEDS: MAGNESIUM CITRATE 296 ML BOTTLE PO ONE (21:43)
[2018-05-15] MEDS: MORPHINE SULFATE 10 MG/ML INJ IV PRN (21:52)
[2018-05-15] MEDS: ATORVASTATIN CALCIUM 80 MG TABLET PO SCH (21:53)
[2018-05-16] MEDS: GABAPENTIN 400 MG CAPSULE PO SCH ×3 (05:08→22:22)
[2018-05-16] MEDS: LANSOPRAZOLE 30 MG TAB.RAP.DR PO SCH (05:08)
[2018-05-16] MEDS: OXYCODONE HCL IR 5 MG TABLET PO PRN (05:08)
[2018-05-16] MEDS: MAGNESIUM CITRATE 296 ML BOTTLE PO ONE (07:41)
[2018-05-16] MEDS: RIFAMPIN 300 MG CAPSULE PO SCH ×2 (07:41→15:42)
[2018-05-16] MEDS ORDERED: MAGNESIUM CITRATE 296 ML BOTTLE PO ONE (08:30)
[2018-05-16] MEDS: LEVOFLOXACIN 750 MG/D5W RTU 750 MG/150 ML RTUPB IV SCH (10:55)
[2018-05-16] MEDS: PRAMIPEXOLE DI-HCL 0.5 MG TABLET PO SCH ×3 (10:56→22:25)
[2018-05-16] MEDS: FINASTERIDE 5 MG TABLET PO SCH (10:56)
[2018-05-16] MEDS: NORMAL SALINE 10 ML SDV (SCHEDULED) IV SCH ×2 (10:57→22:23)
[2018-05-16] MEDS: SENNOSIDES/DOCUSATE 8.6-50 MG 1 EACH TABLET PO SCH ×2 (10:57→17:37)
[2018-05-16] MEDS: PRENATAL VITAMIN W DHA CAPSULE PO SCH (10:57)
[2018-05-16] MEDS: POLYETHYLENE GLYCOL 3350 POWDER 17 GM/1 PACKET PO SCH (18:07)
[2018-05-16] MEDS: ATORVASTATIN CALCIUM 80 MG TABLET PO SCH (22:22)
[2018-05-16] MEDS: OXYCODONE HCL SR 10 MG TABLET PO SCH (22:22)
[2018-05-17] MEDS: LANSOPRAZOLE 30 MG TAB.RAP.DR PO SCH (05:34)
[2018-05-17] MEDS: GABAPENTIN 400 MG CAPSULE PO SCH ×3 (05:34→21:43)
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
[2018-05-17] MEDS: OXYCODONE HCL IR 5 MG TABLET PO PRN (07:44)
[2018-05-17] MEDS: RIFAMPIN 300 MG CAPSULE PO SCH ×2 (07:44→15:33)
[2018-05-17] MEDS: LEVOFLOXACIN 750 MG/D5W RTU 750 MG/150 ML RTUPB IV SCH (09:25)
[2018-05-17] MEDS: OXYCODONE HCL SR 10 MG TABLET PO SCH ×2 (09:26→21:43)
[2018-05-17] MEDS: FINASTERIDE 5 MG TABLET PO SCH (09:26)
[2018-05-17] MEDS: PRENATAL VITAMIN W DHA CAPSULE PO SCH (09:26)
[2018-05-17] MEDS: SENNOSIDES/DOCUSATE 8.6-50 MG 1 EACH TABLET PO SCH ×2 (09:26→17:00)
[2018-05-17] MEDS: POLYETHYLENE GLYCOL 3350 POWDER 17 GM/1 PACKET PO SCH (09:27)
[2018-05-17] MEDS: NORMAL SALINE 10 ML SDV (SCHEDULED) IV SCH ×2 (09:27→21:45)
[2018-05-17] MEDS: PRAMIPEXOLE DI-HCL 0.5 MG TABLET PO SCH ×3 (09:28→21:43)
[2018-05-17] MEDS: ATORVASTATIN CALCIUM 80 MG TABLET PO SCH (21:43)
[2018-05-18] MEDS: LANSOPRAZOLE 30 MG TAB.RAP.DR PO SCH (05:05)
[2018-05-18] MEDS: GABAPENTIN 400 MG CAPSULE PO SCH (05:05)
[2018-05-18] MEDS: MORPHINE SULFATE 10 MG/ML INJ IV PRN (05:10)
[2018-05-18] MEDS: RIFAMPIN 300 MG CAPSULE PO SCH (08:56)
[2018-05-18] MEDS: OXYCODONE HCL SR 10 MG TABLET PO SCH (09:46)
[2018-05-18] MEDS: POLYETHYLENE GLYCOL 3350 POWDER 17 GM/1 PACKET PO SCH (09:46)
[2018-05-18] MEDS: FINASTERIDE 5 MG TABLET PO SCH (09:47)
[2018-05-18] MEDS: SENNOSIDES/DOCUSATE 8.6-50 MG 1 EACH TABLET PO SCH (09:47)
[2018-05-18] MEDS: PRENATAL VITAMIN W DHA CAPSULE PO SCH (09:47)
[2018-05-18] MEDS: LEVOFLOXACIN 750 MG/D5W RTU 750 MG/150 ML RTUPB IV SCH (09:54)
[2018-05-18] MEDS: PRAMIPEXOLE DI-HCL 0.5 MG TABLET PO SCH (09:55)
[2018-05-18 11:31] VITALS: BP 151/67
[2018-05-19] MEDS ORDERED: PANTOPRAZOLE SODIUM 40 MG TABLET.DR PO SCH (06:00)
== END 2018-05-18 13:00 | DRG 467 ==
LOC: INOR 05:17 → 5 10:43
PROVIDERS: ADMIT Orthopaedic Surgery; ATTEND Orthopaedic Surgery
PROC: 0SP90JZ Removal of Synthetic Substitute from Right Hip Joint, Open Approach (ICD-10-PCS; 2018-05-12)
PROC: 0JDL0ZZ Extraction of Right Upper Leg Subcutaneous Tissue and Fascia, Open Approach (ICD-10-PCS; 2018-05-12)
PROC: 02HV33Z Insertion of Infusion Device into Superior Vena Cava, Percutaneous Approach (ICD-10-PCS; 2018-05-12)
PROC: B548ZZA Ultrasonography of Superior Vena Cava, Guidance (ICD-10-PCS; 2018-05-12)
PROC: B518ZZA Fluoroscopy of Superior Vena Cava, Guidance (ICD-10-PCS; 2018-05-12)
PROC: 0SR902Z Replacement of Right Hip Joint with Metal on Polyethylene Synthetic Substitute, Open Approach (ICD-10-PCS; principal; 2018-05-12 07:30)
PROC: 30233N1 Transfusion of Nonautologous Red Blood Cells into Peripheral Vein, Percutaneous Approach (ICD-10-PCS; 2018-05-13)
DX: T84.51XA Infection and inflammatory reaction due to internal right hip prosthesis, initial encounter (principal); D62 Acute posthemorrhagic anemia; Z96.641 Presence of right artificial hip joint; E78.00 Pure hypercholesterolemia, unspecified; G25.81 Restless legs syndrome; E11.40 Type 2 diabetes mellitus with diabetic neuropathy, unspecified; Z79.4 Long term (current) use of insulin; B95.61 Methicillin susceptible Staphylococcus aureus infection as the cause of diseases classified elsewhere; Z87.81 Personal history of (healed) traumatic fracture
CPT/HCPCS: 01215; 36415; 36430; 36569; 71045; 72170; 76937; 77001; 80048; 80202; 81001; 82962; 83036; 85025; 85027; 85610; 85652; 85730; 86140; 86850; 86900; 86901; 86920; 87070; 87075; 87077; 87186; 87205; 88304; 93005; 93010; 94799; C1776; J0696; J1642; J1741; J1815; J1956; J2001; J2250; J2270; J2405; J2704; J3010; J3370; J3490; J7050; J7060; J7120; P9016

== ENCOUNTER → 2019-05-09 | Outpatient (CLI) | payer MEDICARE, OTHER ==
--- NOTE | 2019-05-11 17:05 | XCELERA REPORT ---
[address] [address] Lower Extremity Venous Evaluation Procedure: A bilateral duplex scan of the lower extremity veins was performed. The evaluation included responses to compression and other maneuvers with patient in the supine and standing positions to assess venous insufficiency. Right Sided Venous Evaluation Deep venous system evaluation shows patent veins with no significant reflux identified. Sapheno Femoral junction: no reflux. Greater Saphenous vein, Proximal thigh: reflux: no reflux. Greater Saphenous vein, mid thigh: reflux:no reflux. Greater Saphenous vein, Distal thigh: reflux:no reflux. Greater Saphenous vein, Proximal below knee: reflux: none Greater Saphenous vein, Mid below knee: reflux: none. Greater Saphenous vein, Distal below knee: reflux: .676 second reflux.4.9 mm diameter Small Saphenous vein: reflux: .1 second reflux.7.9 mm diameter No significant Perforators identified. Left Sided Venous Evaluation Deep venous system evaluation shows patent veins with no significant reflux identified. Sapheno Femoral junction: no reflux. Greater Saphenous vein, Proximal thigh: reflux: no reflux. Greater Saphenous vein, mid thigh: reflux:no reflux. Greater Saphenous vein, Distal thigh: reflux:1 second reflux.3.2mm diameter. Greater Saphenous vein, Proximal below knee: reflux: none Greater Saphenous vein, Mid below knee: reflux: none. Greater Saphenous vein, Distal below knee: reflux: .None. Small Saphenous vein: reflux: .1.14 second reflux.3.5 mm diameter. Partly occluded , with echogenic content. Interpretation Summary No duplex evidence of DVT or obstruction in the bilateral lower extremities. Chronic superficial phlebitis noted in the left Small Saphenous vein. There is superficial reflux in limited areas of both Greater and Small Saphenous veins, as indicated. Name: ANGELA SANTOS Age: 68 yrs Gender: Male : 1950 Patient Status: Outpatient Patient Location: Study Date: 05/09/2019 10:53 AM Reason For Study: PAIN/SWELLING Ordering Physician: PACO FLEMING Performed By: Ananda August : PACO FLEMING > Paco Fleming
== END ==
LOC: SP 10:03
PROVIDERS: ATTEND Surgery
DX: I87.2 Venous insufficiency (chronic) (peripheral) (principal)
CPT/HCPCS: 93925; 93970

== ENCOUNTER 2019-07-12 15:59 | Emergency (ER) | payer OTHER, MEDICARE ==
--- NOTE | 2019-07-12 16:14 | ER Document Report ---
ED Medical Screen (RME) - General Chief Complaint: Urinary Problem Stated Complaint: URINARY PROBLEM Time Seen by Provider: 07/12/19 16:05 Primary Care Provider: PACO FLEMING MD [Primary Care Provider] - Follow up as needed Mode of Arrival: Ambulatory Information source: Patient Notes: Patient was sent here from the [place] clinic due to difficulty voiding for the past 2 to 3 weeks. Patient had a Cheng catheter placed in the office and they were able to drain 1200 mL's of urine. Upon examination in the office he was found to have right lower extremity weakness, low back pain and saddle anesthesia. Patient was sent here for evaluation for possible spinal cord compression. Patient does have a history of prostate enlargement, diabetes and dyslipidemia. I have greeted and performed a rapid initial assessment of this patient. A comprehensive ED assessment and evaluation of the patient, analysis of test results and completion of the medical decision making process will be conducted by additional ED providers. TRAVEL OUTSIDE OF THE [place] IN LAST 30 DAYS: No - Related Data Allergies/Adverse Reactions: No Known Allergies Allergy (Unverified 05/18/16 09:33) Past Medical History - Past Medical History Cardiac Medical History: Reports: Hx Hypercholesterolemia Denies: Hx Atrial Fibrillation, Hx Congestive Heart Failure, Hx Coronary Artery Disease, Hx Heart Attack, Hx Hypertension, Hx Peripheral Vascular Disease, Hx Heart Murmur Pulmonary Medical History: Neurological Medical History: Denies: Hx Cerebrovascular Accident, Hx Seizures, Hx Parkinson's Disease Endocrine Medical History: Denies: Hx Graves' Disease, Hx Hyperthyroidism, Hx Hypothyroidism Renal/ Medical History: Denies: Hx Benign Prostatic Hyperplasia, Hx End Stage Renal Disease, Hx Kidney Stones, Hx Peritoneal Dialysis GI Medical History: Denies: Hx Crohn's Disease, Hx Gastroesophageal Reflux Disease, Hx Hiatal Hernia, Hx Irritable Bowel, Hx Liver Failure, Hx Pancreatitis, Hx Ulcer Musculoskeltal Medical History: Comment Only Hx Arthritis - hips, Denies Hx Fibromyalgia, Denies Hx Multiple Sclerosis, Denies Hx Muscular Dystrophy, Denies Hx Systemic Lupus Erythematosus Psychiatric Medical History: Reports: Hx Depression Denies: Hx Bipolar Disorder, Hx Dementia, Hx Post Traumatic Stress Disorder, Hx Schizophrenia Traumatic Medical History: Reports: Hx Fractures - vertebrae, right radius Past Surgical History: Denies: Hx Appendectomy, Hx Bowel Surgery, Hx Cholecystectomy, Hx Colostomy, Hx Coronary Artery Bypass Graft, Hx Gastric Bypass Surgery, Hx Herniorrhaphy, Hx Pacemaker, Hx Tonsillectomy - Immunizations Hx Diphtheria, Pertussis, Tetanus Vaccination: Yes Physical Exam - Vital signs Vitals: Temp Pulse Resp BP Pulse Ox 97.8 F 85 20 144/56 H 97 07/12/19 16:05 07/12/19 16:05 07/12/19 16:05 07/12/19 16:05 07/12/19 16:05 - Back Back: Tender - Right lower lumbar paraspinal tenderness - Extremities General lower extremity: Edema Course - Vital Signs Vital signs: Temp Pulse Resp BP Pulse Ox 97.8 F 85 20 144/56 H 97 07/12/19 16:05 07/12/19 16:05 07/12/19 16:05 07/12/19 16:05 07/12/19 16:05 Doctor's Discharge - Discharge Referrals: PACO FLEMING MD [Primary Care Provider] - Follow up as needed
--- NOTE | 2019-07-12 16:43 | ER Document Report ---
ED General - General Chief Complaint: Urinary Retention Stated Complaint: URINARY PROBLEM Time Seen by Provider: 07/12/19 16:05 Mode of Arrival: Ambulatory Information source: Patient Notes: RAFI HPI: Patient was sent here from the [place] clinic due to difficulty voiding for the past 2 to 3 weeks. Patient had a Cheng catheter placed in the office and they were able to drain 1200 mL's of urine. Upon examination in the office he was found to have right lower extremity weakness, low back pain and saddle anesthesia. Patient was sent here for evaluation for possible spinal cord compression. Alton childs does have a history of prostate enlargement, diabetes and dyslipidemia. HPI: Patient reports to me that he has had numbness on the inside from the waist down for 1 year now since his right hip was replaced. He also reports chronic low back pain more so on the right side. Patient denies any new pain or new numbness. He also reports right leg weakness but also states that was ongoing since his most recent surgery 1 year ago. The only new symptom that the patient has over the last 2 to 3 weeks has been urinary frequency and urinary retention. He saw a urologist who he states started him on medication to try to help his urinary flow. TRAVEL OUTSIDE OF THE [place] IN LAST 30 DAYS: No - Related Data Allergies/Adverse Reactions: No Known Allergies Allergy (Unverified 05/18/16 09:33) Home Medications: finasteride, insulin, lamotrigine, levofloxacin, pramipexole, venlafaxine Past Medical History - General Information source: Patient - Social History Smoking Status: Current Some Day Smoker Chew tobacco use (# tins/day): No Frequency of alcohol use: Occasional Drug Abuse: None Family History: Reviewed & Not Pertinent Patient has homicidal ideation: No - Past Medical History Cardiac Medical History: Reports: Hx Hypercholesterolemia Denies: Hx Atrial Fibrillation, Hx Congestive Heart Failure, Hx Coronary Artery Disease, Hx Heart Attack, Hx Hypertension, Hx Peripheral Vascular Disease, Hx Heart Murmur Pulmonary Medical History: Neurological Medical History: Denies: Hx Cerebrovascular Accident, Hx Seizures, Hx Parkinson's Disease Endocrine Medical History: Denies: Hx Graves' Disease, Hx Hyperthyroidism, Hx Hypothyroidism Renal/ Medical History: Denies: Hx Benign Prostatic Hyperplasia, Hx End Stage Renal Disease, Hx Kidney Stones, Hx Peritoneal Dialysis GI Medical History: Denies: Hx Crohn's Disease, Hx Gastroesophageal Reflux Disease, Hx Hiatal Hernia, Hx Irritable Bowel, Hx Liver Failure, Hx Pancreati tis, Hx Ulcer Musculoskeletal Medical History: Comment Only Hx Arthritis - hips, Denies Hx Fibromyalgia, Denies Hx Multiple Sclerosis, Denies Hx Muscular Dystrophy, Denies Hx Systemic Lupus Erythematosus Psychiatric Medical History: Reports: Hx Depression Denies: Hx Bipolar Disorder, Hx Dementia, Hx Post Traumatic Stress Disorder, Hx Schizophrenia Traumatic Medical History: Reports: Hx Fractures - vertebrae, right radius Past Surgical History: Denies: Hx Appendectomy, Hx Bowel Surgery, Hx Taryn cystectomy, Hx Colostomy, Hx Coronary Artery Bypass Graft, Hx Gastric Bypass Surgery, Hx Herniorrhaphy, Hx Pacemaker, Hx Tonsillectomy - Immunizations Hx Diphtheria, Pertussis, Tetanus Vaccination: Yes Hx Pneumococcal Vaccination: 05/13/15 Review of Systems - Review of Systems Constitutional: No symptoms reported EENT: No symptoms reported Cardiovascular: No symptoms reported Respiratory: No symptoms reported Gastrointestinal: No symptoms reported Genitourinary: See HPI Male Genitourinary: No symptoms reported Musculoskeletal: See HPI Skin: No symptoms reported Hematologic/Lymphatic: No symptoms reported Neurological/Psychological: No symptoms reported Physical Exam - Vital signs Vitals: Temp Pulse Resp BP Pulse Ox 97.8 F 85 20 144/56 H 97 07/12/19 16:05 07/12/19 16:05 07/12/19 16:05 07/12/19 16:05 07/12/19 16:05 - Notes Notes: PHYSICAL EXAMINATION: GENERAL: Well-appearing, well-nourished and in no acute distress. HEAD: Atraumatic, normocephalic. EYES: Pupils equal round and reactive to light, extraocular movements intact, sclera anicteric, conjunctiva are normal. ENT: Nares patent, oropharynx clear without exudates. Moist mucous membranes. NECK: Normal range of motion, supple without lymphadenopathy LUNGS: Breath sounds clear to auscultation bilaterally and equal. No wheezes rales or rhonchi. HEART: Regular rate and rhythm without murmurs ABDOMEN: Soft, nontender, nondistended abdomen. No guarding, no rebound. No masses appreciated. Musculoskeletal: Normal range of motion, no pitting or edema. No cyanosis. NEUROLOGICAL: Face symmetric. Tongue protrudes midline. Extraocular motions intact. Pupils are 2 mm and equally reactive. Normal speech, normal gait. 5 out of 5 strength in both the distal and proximal upper extremities bilaterally, 5 out of 5 strength in the distal and proximal left lower extremity, 2 out of 5 strength in the proximal and distal right lower extremity. Sensation is altered to right lower extremity . Finger to nose testing normal. Pronator drift normal. PSYCH: Normal mood, normal affect. SKIN: Erythema and swelling noted to bilateral lower extremities From the knee down, patient states this is chronic. Course - Re-evaluation Re-evalutation: Laboratory 07/12/19 07/12/19 07/12/19 16:10 16:30 16:30 WBC 6.6 RBC 3.94 L Hgb 13.0 L Hct 37.1 L MCV 94 MCH 33.0 MCHC 35.1 RDW 12.9 Plt Count 305 Lymph % (Auto) 17.1 [place] % (Auto) 9.0 Eos % (Auto) 3.4 Baso % (Auto) 0.7 Absolute Neuts (auto) 4.6 Absolute Lymphs (auto) 1.1 Absolute Monos (auto) 0.6 Absolute Eos (auto) 0.2 Absolute Basos (auto) 0.0 Seg Neutrophils % 69.8 Sodium 134.2 L Potassium 4.6 Chloride 98 Carbon Dioxide 29 Anion Gap 7 BUN 24 H Creatinine 0.94 Est GFR ( Amer) > 60 Est GFR (MDRD) Non-Af > 60 Glucose 356 H Calcium 9.3 Total Bilirubin 0.5 Direct Bilirubin 0.0 Neonat Total Bilirubin Not Reportable Neonat Direct Bilirubin Not Reportable Neonat Indirect Bili Not Reportable AST 39 ALT 30 Alkaline Phosphatase 104 Total Protein 7.2 Albumin 4.2 Urine Color YELLOW Urine Appearance CLEAR Urine pH 6.0 Ur Specific [place] 1.015 Urine Protein 30 H Urine Glucose (UA) 150 H Urine Ketones NEGATIVE Urine Blood LARGE H Urine Nitrite NEGATIVE Urine Bilirubin NEGATIVE Urine Urobilinogen NEGATIVE Ur Leukocyte Esterase TRACE H Urine WBC (Auto) 7 Urine RBC (Auto) >182 Urine Bacteria (Auto) TRACE Urine Mucus (Auto) RARE Urine Ascorbic Acid NEGATIVE Lumbar Spine MRI 07/12/19 16:12 IMPRESSION: Severe spinal stenosis L4-5. Consulted with attending physician, Dr. gates. There is no indication at this time for spinal cord compression, MRI only shows severe spinal stenosis at L4-L5. I had not performed a rectal exam yet to check for rectal tone as patient was getting ready to change manager, no indication for this at this point since we have a normal MRI. I do believe all of his symptoms are related to his genitourinary system most likely related to an enlarged prostate. Patient does have an established relationship with a urologist, Dr. arzate in [place] through the [place]. He will call him tomorrow to schedule a follow-up. He is being sent home with a Cheng catheter, nursing staff will give patient teaching. - Vital Signs Vital signs: Temp Pulse Resp BP Pulse Ox 97.9 F 86 18 142/60 H 98 07/12/19 16:14 07/12/19 16:14 07/12/19 16:14 07/12/19 16:14 07/12/19 16:14 - Laboratory Result Diagrams: 07/12/19 16:10 07/12/19 16:30 Laboratory results interpreted by me: 07/12/19 07/12/19 07/12/19 16:10 16:30 16:30 RBC 3.94 L Hgb 13.0 L Hct 37.1 L Sodium 134.2 L BUN 24 H Glucose 356 H Urine Protein 30 H Urine Glucose (UA) 150 H Urine Blood LARGE H Ur Leukocyte Esterase TRACE H Discharge - Discharge Clinical Impression: Acute urinary retention Condition: Stable Disposition: HOME, SELF-CARE Additional Instructions: Please call and schedule an urgent follow-up appointment with your urologist. The MRI of your lumbar spine did not show any cord compression. Your labs did not explain why you are having acute urinary retention. Please call them and try to get an appointment within the next 3 to 4 days. Return to the emergency department with any new or worsening symptoms.
[2019-07-12 16:56] LABS: APPEARANCE,URINE CLEAR; BILIRUBIN,URINE NEGATIVE (NEGATIVE); COLOR,URINE YELLOW; GLUCOSE, URINE 150 mg/dL (NEGATIVE); KETONES,URINE NEGATIVE (NEGATIVE); LEUKOCYTE ESTERASE,URINE TRACE (NEGATIVE); NITRITE,URINE NEGATIVE (NEGATIVE); PROTEIN,URINE 30 mg/dL (NEGATIVE); URINE SPECIFIC GRAVITY 1.015; UROBILINOGEN,URINE NEGATIVE mg/dL (<2.0)
[2019-07-12 17:01] LABS: ABSOLUTE EOSINOPHILS # (AUTO) 0.2 10^3/uL (0.0-0.6); ABSOLUTE LYMPHOCYTES (AUTO) 1.1 10^3/uL (0.5-4.7); ABSOLUTE MONOCYTES (AUTO) 0.6 10^3/uL (0.1-1.4); ABSOLUTE NEUT (AUTO) 4.6 10^3/uL (1.7-8.2); BASOPHILS % (AUTO) 0.7 % (0-2); EOSINOPHILS % (AUTO) 3.4 % (0-6); HEMATOCRIT 37.1 % (37.9-51.0); LYMPHOCYTES % (AUTO) 17.1 % (13-45); MEAN CORPUSCULAR HGB CONC 35.1 g/dL (32.0-36.0); MEAN CORPUSCULAR VOLUME 94 fl (80-97); PLATELET COUNT 305 10^3/uL (150-450); RED BLOOD COUNT 3.94 10^6/uL (4.35-5.55); RED CELL DISTRIBUTION WIDTH 12.9 % (11.5-14.0); SEGMENTED NEUTROPHILS % (AUTO) 69.8 % (42-78); TOTAL CELLS COUNTED % (AUTO) 100 %; WHITE BLOOD COUNT 6.6 10^3/uL (4.0-10.5)
[2019-07-12 17:19] LABS: ALBUMIN 4.2 g/dL (3.5-5.0); ALKALINE PHOSPHATASE 104 U/L (38-126); ANION GAP 7 (5-19); ASPARTATE AMINO TRANSFERASE 39 U/L (17-59); BILIRUBIN,TOTAL 0.5 mg/dL (0.2-1.3); BLOOD UREA NITROGEN 24 mg/dL (7-20); CALCIUM 9.3 mg/dL (8.4-10.2); CARBON DIOXIDE 29 mmol/L (22-30); CHLORIDE 98 mmol/L (98-107); GLUCOSE 356 mg/dL (75-110); POTASSIUM 4.6 mmol/L (3.6-5.0); TOTAL PROTEIN 7.2 g/dL (6.3-8.2)
--- NOTE | 2019-07-12 17:46 | RADIOLOGY REPORT (SQ) ---
EXAM DESCRIPTION: MRI LUMBAR SPINE WITHOUT IMAGES COMPLETED DATE/TIME: 07/12/2019 5:32 pm REASON FOR STUDY: low back pain, urinary retention, leg weakness COMPARISON: None. TECHNIQUE: Sagittal and Axial imaging includes T1, T2, STIR and gradient echo sequences. Coronal T2/ HASTE imaging. LIMITATIONS: None. FINDINGS: VISUALIZED UPPER ABDOMEN: Limited evaluation. No acute or suspicious findings suggested. SEGMENTATION: No transitional anatomy. The lowest well-developed disc space is labeled L5-S1. ALIGNMENT: Anatomic. VERTEBRAE: Intact. BONE MARROW: Normal. No marrow replacement or reactive changes. DISC SIGNAL: Desiccation multiple levels. POSTERIOR ELEMENTS: Generally intact. No pars defect evident. HARDWARE: None in the spine. CORD AND CONUS: Normal in size and signal intensity. Conus at the appropriate level. SOFT TISSUES: No aortic aneurysm seen. No bulky retroperitoneal adenopathy or mass. No paraspinal mas s or fluid. L1-L2: Facet arthropathy. No significant stenosis. L2-L3: Disc bulge and facet arthropathy. Mild spinal stenosis and lateral recess stenosis. L3-L4: Moderate spinal stenosis and lateral recess stenosis due to disc bulge and facet arthropathy. L4-L5: Severe spinal stenosis due to disc bulge and posterior element overgrowth. Moderate right and mild left neural foraminal narrowing. L5-S1: Disc bulge and facet arthropathy. No significant stenosis. LOWER THORACIC: Incompletely imaged. No stenosis seen. SACRUM: Visualized upper sacrum intact. OTHER: No other significant findings. IMPRESSION: Severe spinal stenosis L4-5. TECHNICAL DOCUMENTATION: JOB ID: [id number] 2010 [employer]- All Rights Reserved Reading location - IP/workstation name: [email or web address]
[2019-07-12 18:46] VITALS: BP 139/77
== END 2019-07-12 19:00 | disposition home or self-care (01) ==
LOC: ER 15:59
DX: R33.9 Retention of urine, unspecified (principal); R30.0 Dysuria; E78.00 Pure hypercholesterolemia, unspecified; M48.061 Spinal stenosis, lumbar region without neurogenic claudication; F17.200 Nicotine dependence, unspecified, uncomplicated
CPT/HCPCS: 36415; 72148; 80053; 81001; 85025; 99284